=== PATIENT | male | born 1990 | race Two or more races ===

== ENCOUNTER → 2019-01-13 | Outpatient (CLI) | payer OTHER | END | disposition home or self-care (01) | LOC: RAD 07:19 | DX: M54.5 Low back pain (principal) ==

== ENCOUNTER 2019-12-16 19:41 | Emergency (ER) | payer OTHER ==
[~2019-12-16] VITALS: Ht 180.3 cm; Wt 86.2 kg
== END 2019-12-16 22:30 | disposition home or self-care (01) ==
LOC: ER 19:41
DX: K62.5 Hemorrhage of anus and rectum (principal)

== ENCOUNTER 2020-06-24 08:22 | Outpatient (CLI) | payer OTHER | END 2020-06-24 08:32 | disposition home or self-care (01) | LOC: RAD 08:22 | DX: R07.9 Chest pain, unspecified (principal) ==

== ENCOUNTER 2021-02-17 23:56 | Emergency (ER) | payer OTHER ==
[~2021-02-17] VITALS: Ht 180.3 cm; Wt 88.5 kg
[2021-02-18] MEDS ORDERED: NORFLEX100MG PO (03:15)
[2021-02-18] MEDS ORDERED: KETO10TA2 PO (03:15)
== END 2021-02-18 03:43 | disposition home or self-care (01) ==
LOC: ER 23:56
DX: R07.89 Other chest pain (principal); Z11.52 Encounter for screening for COVID-19